=== PATIENT | female | born 1990 | race African-American/Black ===

== ENCOUNTER 2016-05-12 00:29 | Emergency (ER) | payer MEDICAID, OTHER ==
[~2016-05-12] VITALS: Ht 165.1 cm; Wt 52.2 kg
[2016-05-12 01:04] VITALS: BP 92/62
[2016-05-12] MEDS ORDERED: KETOROLAC TROMETH 60MG/2ML VIAL IM ONE (08:30)
== END 2016-05-12 09:21 | disposition home or self-care (01) ==
LOC: ER 00:50
DX: S83.8X1A Sprain of other specified parts of right knee, initial encounter (principal); W01.0XXA Fall on same level from slipping, tripping and stumbling without subsequent striking against object, initial encounter; Y93.89 Activity, other specified; Y99.8 Other external cause status; Y92.89 Other specified places as the place of occurrence of the external cause
CPT/HCPCS: 73562; 81025; 96372; 99285; J1885